=== PATIENT | female | born 1960 | race Caucasian/White ===

== ENCOUNTER 2023-01-31 14:30 | Outpatient (CLI) | payer MEDICARE, MEDICAID, SELFPAY | END 2023-01-31 14:31 | disposition home or self-care (01) | PROVIDERS: PCP Family Medicine; Visit Provider Family Medicine | DX: M17.11 Unilateral primary osteoarthritis, right knee (principal); M25.561 Pain in right knee | CPT/HCPCS: 64454 ==

== ENCOUNTER 2023-02-21 12:06 | Outpatient (CLI) | payer MEDICARE, MEDICAID, SELFPAY | END 2023-02-21 12:07 | disposition home or self-care (01) | PROVIDERS: PCP Family Medicine; Visit Provider Family Medicine | DX: M17.11 Unilateral primary osteoarthritis, right knee (principal); M25.561 Pain in right knee; G89.29 Other chronic pain | CPT/HCPCS: 64624; J2250; J3010 ==